=== PATIENT | female | born 1985 ===

== ENCOUNTER 2025-09-18 16:37 | Emergency (ER) | payer BC, SELFPAY ==
[2025-09-18 16:45] VITALS: BP 140/90; PULSE 130; O2SAT 99
[2025-09-18 16:54] VITALS: BP 113/67; PULSE 78; RESP 18; TEMP 36.8; O2SAT 95
--- NOTE | 2025-09-18 17:03 | ED_ITS ---
HPI - Psych General Chief Complaint: Psychiatric Symptoms Stated Complaint: SECTION 12 Time Seen by Provider: 09/18/25 16:49 History of Present Illness ED Provider: trish HPI Narrative: 40 F with depression, reports SI and self injury (lacerations to L wrist). Denies drugs/etoh BIBEMS/policeon sect 12a Related Data Home Medications ?Medication ?Instructions ?Recorded ?Confirmed escitalopram oxalate 20 mg tablet 20 mg PO DAILY 09/1909/19/25 levothyroxine 75 mcg tablet 75 mcg PO DAILY 09/19/25 1 11/19/24 Allergies Allergy/AdvReac Type Severity Reaction Status Date / Time No Known Allergies Allergy Verified 09/18/25 17:19 PMFSH Social History Social History Smoked in Last 30 Days: No Use of substances other than those prescribed or required for medical reasons: No Advance Directives: No Advance Directives Information Provided: Yes Do you have a plan to hurt others: No Plan Physical Exam 2 Exam: Exam: EXAM: Gen: Alert, awake, well appearing, well hydrated. Head: Atraumatic Eyes: Anicteric, Normal conjunctiva. ENT: Moist mucosa, no pallor. ? Neck: Supple. Skin: ?No observable rash or bruising on exposed or examined skin Laceration: Proximally 6-7 cm linear laceration superficial depth. No exposed muscle fascia or vessels. No foreign bodies is clean. Respiratory: Breathing comfortably, No distress.Clear to auscultation bilaterally, symmetric chest expansion, No wheeze, rales, ronchi. Cardiovascular: Regular rate and rhythm. No murmurs or rub. Well perfused periphery, warm extremities. No edema. ? Abdominal: No focal tenderness. Soft, no objective distension. No palpable masses or obvious organomegaly. ?No guarding, no rebound tenderness or other peritoneal findings. : No flank tenderness. Neuro: Alert. Gross movement of all extremities intact. ?Cranial nerve exam not relevant to presentation Psych: Calm. Cooperative. MSK: No grossly visible deformity. Vital signs: See flowsheet Vital Signs: Vital Signs: Last Vital Signs Temp 98.1 F 09/19/25 06:24 Pulse 88 09/19/25 06:24 Resp 16 09/19/25 06:24 BP 137/81 09/19/25 06:24 Pulse Ox 97 09/19/25 06:24 O2 Del Method Room Air 09/19/25 06:24 BMI result Body Mass Index 34.8 Course Course Course Narrative: Time: : Date: 09/19/25 Provider: Hakan Jennings DO Physician observation ended Patient has been cleared for discharge by the CARE team. Will follow up as an outpatient. Medications Administered Discontinued Medications Generic Name Dose Route Start Last Admin Trade Name Rudolph PRN Reason Stop Dose Admin Acetaminophen 975 mg 09/18/25 17:27 09/18/25 17:35 Acetaminophen 325 Mg Tablet PO 09/18/25 17:28 975 mg ONCE ONE Administration Cephalexin HCl 1,000 mg 09/18/25 17:03 09/18/25 17:35 Cephalexin 500 Mg Capsule PO 09/18/25 17:04 1,000 mg ONCE ONE Administration Clonazepam 1 mg 09/18/25 22:09 09/18/25 22:26 Clonazepam 1 Mg Tablet PO 09/18/25 22:10 1 mg ONCE ONE Administration Diphtheria/Tetanus/Acell Pertussis 0.5 ml 09/18/25 17:03 09/18/25 17:36 Diphth,Pertus(Acell),Tet Adult 0.5 Ml Syringe IM 09/18/25 17:04 Not Given .ONCE ONE Lidocaine/Epinephrine 10 ml 09/18/25 17:27 09/18/25 18:39 Lidocaine Hcl 1%/Epi 1:100,000 20 Ml Vial INFILTRATI 09/18/25 17:28 Not Given ONCE ONE Lidocaine/Epinephrine 10 ml 09/18/25 18:36 09/18/25 18:40 Lidocaine Hcl 1%/Epi 1:100,000 10 Ml Vial INFILTRATI 09/18/25 18:37 10 ml ONCE ONE Administration Medical Decision Making Medical Decision Making MDM Narrative: Medical Decision Making: Self-injurious behavior, SI. Superficial laceration of the left palmar wrist 3-4 cm proximal to the wrist crease. No deep structures involved. Laceration closed. Medical screening labs unremarkable. Medically cleared for crisis behavioral health Preliminary Favored Differential Diagnosis: SI, laceration, depression among additional considered etiologies Testing Interpreted Independently: ?See below for details Radiology or Lab testing Results Reviewed: ?See below for details Consults: ?See below for details Independent Historians/External Chart Reviews: ?See below for details Social Determinants of Health Impacting MDM/Planning: ?See below for details Lab Data MDM Lab Attestation statement: I reviewed the patient's lab results. 09/18/25 17:31 09/18/25 17:31 Labs: Lab Results 09/18/25 09/18/25 09/18/25 Range/Units 17:31 20:51 20:52 WBC 17.2 H (4.8-10.8) X10*3/uL RBC 5.18 (4.20-5.50) X10*6/uL Hgb 15.2 (12.0-16.0) g/dl Hct 45.2 (37.0-47.0) % MCV 87.3 (80.0-98.0) fL MCH 29.3 (27.0-33.0) pg MCHC 33.6 (31.0-35.0) g/dl RDW 13.6 (11.0-16.0) % Plt Count 369 (160-400) X10*3/uL MPV 10.0 (9.4-12.3) fL Immature Gran % (Auto) 0.5 H (0.0-0.4) % Neut % (Auto) 77.7 H (45-73) % Lymph % (Auto) 15.1 L (20-40) % [place] % (Auto) 6.3 (2-11) % Eos % (Auto) 0.1 (0-4) % Baso % (Auto) 0.3 (0-2) % Lymph # (Auto) 2.6 (1.2-4.9) X10*3/uL [place] # (Auto) 1.1 (0.1-1.2) X10*3/uL Eos # (Auto) 0.0 (0.0-0.4) X10*3/uL Baso # (Auto) 0.1 (0.0-0.2) X10*3/uL Abs Immat Gran (auto) 0.08 H (0.00-0.03) X10*3/uL Absolute Neuts (auto) 13.4 H (2.0-8.3) x10*3/uL Absolute Nucleated RBC 0.000 (0.0-0.012) X10*3/uL Nucleated RBC % (auto) 0.0 (0.0-0.2) /100WBC Sodium 142 (135-145) mmol/L Potassium 4.2 (3.3-5.1) mmol/L Chloride 107 (96-108) mmol/L Carbon Dioxide 24 (22-29) mmol/L Anion Gap 15 (12-20) BUN 13 (9-16) mg/dL Creatinine 0.75 (0.5-1.4) mg/dL Estim Creat Clear Calc 97.7 Estimated GFR > 60 Random Glucose 101 (60-115) mg/dL Calcium 9.5 (8.4-10.2) mg/dL Total Bilirubin 0.4 (0.0-1.0) mg/dL AST 32 H (5-31) U/L ALT 29 (0-31) U/L Alkaline Phosphatase 86 (39-117) U/L Total Protein 8.7 H (6.5-8.0) g/dL Albumin 4.8 (3.5-5.0) g/dL Urine Color Dark Yellow Urine Appearance Cloudy Urine pH 5.5 (5.0-9.0) Ur Specific [place] >= 1.030 H (1.005-1.025) Urine Protein 30 (1+) H (Neg-Trace) mg/dL Urine Glucose (UA) Negative (Negative) mg/dL Urine Ketones 80 (Negative) mg/dL Urine Blood Negative (Negative) Urine Nitrite Negative (Negative) Ur Leukocyte Esterase Trace H (Negative) Urine RBC 0-2 (0-2) /HPF Urine WBC 6-10 H (0-5) /HPF Ur Squamous Epith Cells >20 (0-2) /HPF Urine Bacteria 4+ (None Seen) Hyaline Casts 6-10 (0-2) /LPF Urine Test NEGATIVE (NEGATIVE) Urine Opiates Screen Not Detected (Not Detect) Ur Buprenorphine Scrn Not Detected (Not Detect) ng/mL Ur Oxycodone Screen Not Detected (Not Detect) ng/mL Urine Methadone Screen Not Detected (Not Detect) ng/mL Urine Fentanyl Screen Not Detected (Not Detect) Ur Barbiturates Screen Not Detected (Not Detect) Ur Phencyclidine Scrn Not Detected (Not Detect) Ur Amphetamines Screen Not Detected (Not Detect) U Benzodiazepines Scrn Not Detected (Not Detect) Urine Cocaine Screen Not Detected (Not Detect) U Marijuana (THC) Screen POSITIVE H (Not Detect) Ethyl Alcohol 11 mg/dL Procedures Procedure Narrative Procedure Narrative: PROCEDURE NOTE Procedure: Wound Repair Performed by: Jeffrey Hawley MD Indication: Laceration Procedure: The wound, located on the left wrist, measured 7 cm cm and was superficial and linear.? The neurovascular exam [was intact].? Skin was prepped with Betadine.? Anesthesia was obtained with 8 ml of 1% lidocaine with epinephrine.? Wound was clean.? It was irrigated with saline and explored.? No foreign body identified. Removal of [particulate matter] [was not] required.? Extensive cleaning/undermining was not required. No apparent tendon or nerve injury. The wound was closed using 2 4-0 Vicryl subcutaneous followed by 7 4 0 Prolene simple interrupted No complications. Critical Care Time Critical Care Time Critical Care Time: Yes Total Critical Care Time: 30 Attestation: ED Critical Care: High-risk suicidality, agitation in the behavioral unit, self-inflicted laceration Authorized and Performed by: Jeffrey Hawley MD Total critical care time: Approximately 30 min Due to a high probability of clinically significant, life threatening deterioration, the patient required my highest level of preparedness to intervene emergently and I personally spent this critical care time directly and personally managing the patient. This critical care time included obtaining a history; examining the patient; pulse oximetry; ordering and review of studies; arranging urgent treatment with development of a management plan; evaluation of patient's response to treatment; frequent reassessment; and, discussions with other providers. This critical care time was performed to assess and manage the high probability of imminent, life-threatening deterioration that could result in multi-organ failure. It was exclusive of separately billable procedures and treating other patients and teaching time. Discharge Plan Discharge Clinical Impression: Suicidal ideation Patient Disposition: Home, Self-Care Additional Instructions: You were seen in our Emergency Department today for treatment of a behavioral health issue. It is important after your visit that you follow up with either your behavioral health provider or a primary care doctor within 7 days.? If you have trouble finding a therapist you can reach out to [address] [phone] The National Suicide and Crisis Lifeline can be reached 7 days a week 24 hours a day.? Call 988 to speak with someone.? Return for any worsening symptoms or concerns such as thoughts of self harm or harm to others. Please call 911 if you feel your mental health is worsening.? Prescriptions: No Action levothyroxine 75 mcg tablet 75 mcg PO DAILY escitalopram oxalate 20 mg tablet 20 mg PO DAILY Interventions: Reeves-Suicide Risk Severity Scale Last Done: 09/18/25 17:23 Discharge Date/Time: 09/19/25 11:39 Print Language: Japanese
--- NOTE | 2025-09-18 17:12 | MHC.EDTECH ---
patient has a list of numbers with her belongings
[2025-09-18 17:16] VITALS: BP 113/67; PULSE 78; RESP 18; TEMP 36.8; O2SAT 95; BMI 34.8
[2025-09-18 17:36] LABS: MANUAL DIFF FLAG NO
[2025-09-18 17:39] LABS: Hematocrit 45.2 % (37.0-47.0); Hemoglobin 15.2 g/dl (12.0-16.0); Imm Gran Abs Auto 0.08 X10*3/uL (0.00-0.03); Imm Gran Pct Auto 0.5 % (0.0-0.4); Lymphocytes Absolute Auto 2.6 X10*3/uL (1.2-4.9); Mean Corpuscular HGB Conc 33.6 g/dl (31.0-35.0); Mean Corpuscular Hemoglobin 29.3 pg (27.0-33.0); Mean Corpuscular Volume 87.3 fL (80.0-98.0); NRBC Abs Auto 0.000 X10*3/uL (0.0-0.012); NRBC Pct Auto 0.0 /100WBC (0.0-0.2); Platelet Count 369 X10*3/uL (160-400); Red Blood Count 5.18 X10*6/uL (4.20-5.50); White Blood Count 17.2 X10*3/uL (4.8-10.8)
[2025-09-18 17:51] LABS: Alanine Aminotransferase 29 U/L (0-31); Albumin Level 4.8 g/dL (3.5-5.0); Alkaline Phosphatase 86 U/L (39-117); Anion Gap 15 (12-20); Aspartate Amino Transferase 32 U/L (5-31); Blood Urea Nitrogen 13 mg/dL (9-16); Calcium 9.5 mg/dL (8.4-10.2); Carbon Dioxide 24 mmol/L (22-29); Chloride 107 mmol/L (96-108); Creatinine Clr Calc Pharmacy 97.7; Estimated Glomerular Filt Rate > 60; Potassium 4.2 mmol/L (3.3-5.1); Sodium 142 mmol/L (135-145); Total Protein 8.7 g/dL (6.5-8.0)
--- NOTE | 2025-09-18 18:06 | PC.NURSE ---
called pharmacy for a med/rec the cut is significantly large to the left wrist, deep exposing the adipose tissue. pt denies si states that she has a lot life stresses right now, pt is changed over and sitter at place
[2025-09-18] MEDS: Lidocaine HCl 1%/Epi 1:100,000 10 ML VIAL INFILTRATI (18:40)
--- NOTE | 2025-09-18 18:40 | PC.NURSE ---
tetanus vaccine not give pt reports she recently had it
--- NOTE | 2025-09-18 19:55 | PC.NURSE ---
TW received verbal authorization for TW to provide Kunaldaren Cobb, pt's , with an update on her status. was only aware that PT was in the hospital and not the reason. tearful. Call transferred to pt. PT said a few words and hung up. Contact number for the is [phone]
[2025-09-18 21:02] LABS: Appearance Urine Cloudy; Glucose Urine UA Negative (Negative); PH 5.5 (5.0-9.0); Specific Gravity - Urine >= 1.030 (1.005-1.025); UMIC TRIGGER UA YES
[2025-09-18 21:03] LABS: UPreg QC Valid YES
[2025-09-18 21:14] LABS: Cannabinoid Screen Urine POSITIVE (Not Detect)
--- NOTE | 2025-09-19 05:27 | PC.NURSE ---
Received from Main ED. heel coverer completed prior to arrival. Patient belongings secured. Presents as anxious and tearful. Became verbally escalated when told plan for Care Team to meet in the morning. Made statements such as I need to get out of here! I know what I did! I have kids I need to go home! Emotional support provided. Moved to [facility] for privacy. Dressing to wrist appeared soiled with blood/not intact. Sutures appear intact, dressing reinforced. Clean/dry/intact. MD Hawley made aware, x1 order for 1mg Clonazepam obtained/administered with good effect. Patient became apologetic to staff after receiving HS meds. Remains in behavioral control. 15 minute safety checks ongoing. Plan of care ongoing.
[2025-09-19 06:24] VITALS: BP 137/81; PULSE 88; RESP 16; TEMP 36.7; O2SAT 97
--- NOTE | 2025-09-19 07:59 | PC.NURSE ---
Assumed care, report received. PT is eating breakfast, she is tearful and wants to go home.
--- NOTE | 2025-09-19 11:20 | PHA.MEDREC ---
Addendum entered by Gloria Husain RPh 09/19/25 11:38: REVIEWED BY PHARMACIST Original Note: Pharmacy Consult ? Medication Reconciliation Pharmacy reviewed med rec done by nursing. Claims match.
--- NOTE | 2025-09-19 15:05 | MHC.CARE ---
RAD Team emailed PHP referral for this pt, will follow up tomorrow
== END 2025-09-19 11:39 | disposition home or self-care (01) ==
PROVIDERS: Emergency Provider Emergency Medicine; PCP Family Medicine
DX: R45.851 Suicidal ideations (principal); S61.512A Laceration without foreign body of left wrist, initial encounter; X78.9XXA Intentional self-harm by unspecified sharp object, initial encounter; Y93.9 Activity, unspecified; Y92.9 Unspecified place or not applicable
CPT/HCPCS: 12002; 36415; 80053; 80307; 81001; 81003; 81025; 85025; 87086; 99285; J2004; S9485